=== PATIENT | male | born 1985 | race American Indian/Alaskan Native ===

== ENCOUNTER 2016-12-21 17:21 | Emergency (ER) | payer SELFPAY ==
--- NOTE | 2016-12-21 21:24 | Emergency Department Report ---
HPI - General Chief Complaint: Allergic Reaction Time Seen by Provider: 12/21/16 21:08 - HPI HPI: Patient here reports allergic reaction since yesterday. He said he has rash in his body and it feels bad and itches. Denies any shortness of breath, cough, wheezing, chest pain or discomfort, difficulty swallowing or sore throat. Denies any neck swelling or swelling of the tongue. Denies any fever or chills. Patient said he thinks 8 old frozen fish sticks yesterday because that' s when he started noticing that he was itching. He states that he is not allergic to fish. He did not take anything for rash or allergic reaction. Denies any medical problems. ED Past Medical Hx - Past Medical History Previous Medical History?: No - Surgical History Past Surgical History?: No - Family History Family history: no significant (Single) - Social History Smoking Status: Current Every Day Smoker Substance Use Type: None - Medications Home Medications: Home Medications Medication Instructions Recorded Confirmed Last Taken Type Cetirizine HCl [ZyrTEC] 10 mg PO QAM #7 capsule 12/21/16 Unknown Rx hydrOXYzine HCL [Atarax] 25 mg PO BID PRN #12 tablet 12/21/16 Unknown Rx methylPREDNISolone [Medrol] 4 mg PO QAM #1 tab.ds.pk 12/21/16 Unknown Rx ED Review of Systems ROS: Stated complaint: ALLERGIC REACTION, RASH Other details as noted in HPI Comment: All other systems reviewed and negative Constitutional: no symptoms reported Eyes: denies: eye pain, eye discharge ENT: denies: ear pain, throat pain, congestion Respiratory: no symptoms reported Cardiovascular: denies: chest pain, palpitations, dyspnea on exertion, edema, syncope Gastrointestinal: denies: abdominal pain, nausea, vomiting, diarrhea Musculoskeletal: denies: back pain, joint swelling, arthralgia, myalgia Skin: rash, pruritus Neurological: denies: headache, weakness, numbness, paresthesias, confusion, abnormal gait, vertigo Physical Exam - Physical Exam Vital Signs: Vital Signs 12/21/16 17:58 Temperature 98.3 F Pulse Rate 87 Respiratory 18 Rate Blood Pressure 137/80 O2 Sat by Pulse 97 Oximetry General: This is a 31-year-old male well-nourished well-developed in no acute distress. Physical Exam: Head: Normocephalic, atraumatic, no abrasion, no bruising and no contusion. Eyes: Biateral pupils equal and reactive to light, bilateral EOM intact.. Bilateral conjunctival and sclera without injection, normal accommodation. Mouth: NO pharyngeal exudate and erythema. Uvula is midline and oral airways patent. tongue is normal. No peritonsillar abscess noted. Neck: Supple, No Cervical adenopathy, full range of motion and no C-spine tenderness. No swelling or tracheal deviation Cardiovascular: S1, S2. Regular rate and rhythm. No murmur. Capillary refill is less then 3 seconds. Lungs: Clear to auscultate bilaterally. No rhonchi, wheezes or rales. No chest wall tenderness MSK: Strength 5/5 in all extremities. No joint deformity or crepitus. Normal inspection. Full range of motion to all extremities Extremities: No clubbing, cyanosis or edema. +2 pulses. No neurovascular compromise Skin: Clean, dry and intact. Noted maculopapular rash to back of neck, sparsely scattered to anterior and posterior torso and upper extremities. Mild erythema. No drainage and rash is nontender to palpate. Psych: Normal mood and behavior. ED Course Vital Signs 12/21/16 17:58 Temperature 98.3 F Pulse Rate 87 Respiratory 18 Rate Blood Pressure 137/80 O2 Sat by Pulse 97 Oximetry - Reevaluation(s) Reevaluation #1: 12/21/16 22:14 given Decadron 10 mg IM and emergency room for contact dermatitis. ED Medical Decision Making - Medical Decision Making ED course: Patient here reports allergic reaction with rash and itching. He has no respiratory symptoms. Physical findings for contact dermatitis with Pruritic skin disorder. I discussed with patient that he needs to avoid offending agent and if he needs to know what he is allergic to he will need to follow up with [facility] for allergy testing. Patient given Decadron 10 mg IM in the emergency room. Discharged home with prescription for Zyrtec to take in the morning, Medrol Dosepak and Atarax to take at home. Patient is stable. Critical care attestation.: If time is entered above; I have spent that time in minutes in the direct care of this critically ill patient, excluding procedure time. ED Disposition Clinical Impression: Pruritus Contact dermatitis Qualifiers: Contact dermatitis type: allergic Contact dermatitis trigger: unspecified trigger Qualified Code(s): L23.9 - Allergic contact dermatitis, unspecified cause Disposition: DC-01 TO HOME OR SELFCARE Is pt being admited?: No Does the pt Need Aspirin: No Condition: Stable Instructions: Diaper Rash (ED), Itchy Skin (ED) Additional Instructions: Please take Atarax one at home for itching as this medication can cause drowsiness so please do not drive or operate heavy machinery while taking this medication. Please keep affected areas clean and dry Avoid offending agent Take Zyrtec in the morning and this will help with itching and does not cause drowsiness. F/u primary care physician in 3-5 days and also follow up with [facility] for skin testing if necessary. Prescriptions: Cetirizine HCl [ZyrTEC] 10 mg PO QAM #7 capsule hydrOXYzine HCL [Atarax] 25 mg PO BID PRN #12 tablet PRN Reason: Itching methylPREDNISolone [Medrol] 4 mg PO QAM #1 tab.ds.pk Referrals: PRIMARY CAREMD [Primary Care Provider] - 2-3 Days ABRAM SWARTZ MD [Staff Physician] - 2-3 Days [facility] [Outside] - 2-3 Days Forms: Accompanied Note, Work/School Release Form(ED)
[2016-12-21] MEDS ORDERED: DECADRON IM STA (21:46)
[2016-12-21] MEDS ORDERED: DECADRON ONE (21:55)
[2016-12-21 23:53] VITALS: BP 133/80
== END 2016-12-21 23:53 | disposition home or self-care (01) ==
LOC: ED 17:21
DX: L29.9 Pruritus, unspecified (principal); L23.9 Allergic contact dermatitis, unspecified cause; F17.200 Nicotine dependence, unspecified, uncomplicated
CPT/HCPCS: 96372; 99282; J1100